=== PATIENT | male | born 1980 | race African-American/Black ===

== ENCOUNTER 2016-10-13 22:59 | Emergency (ER) | payer SELFPAY ==
[~2016-10-13] VITALS: Ht 172.7 cm; Wt 68.0 kg
--- NOTE | ~2016-10-13 | CT71 ---
[facility] A Service of [facility] RADIOLOGY TEXT RESULTS PATIENT: JOANNE MONTENEGRO LOCATION: SED : 82 UNIT #: [id number] AGE: [address]: William Palacios MD SEX: M ORDER DR: [id number] [place] [id number] E MR#: [id number] Acc #: [id number] NAME: JOANNE MONTENEGRO : 1980 SEX: M STUDY DATE/TIME: 10/13/2016 23:21 UNIT: SED ROOM: STUDY DESCRIPTION: CT Head Wo Contrast Attending Physician: William Palacios M.D. Ordering Physician: William Palacios M.D. Primary Care Physician: No Primary Care Physician MEDICAL IMAGING REPORT This report is preliminary unless electronic signature is present. EXAM CT head, noncontrast, 10/13/2016. HISTORY 36-year-old male in the ED complaining of 2-month history of dizziness, confusion and some burning discomfort behind the right ear. No reported acute injury. TECHNIQUE CT examination of the head without IV contrast. This CT exam was performed with one or more of the following radiation dose reduction techniques: automatic exposure control, adjustment of mA and/or kV according to patient size, and iterative reconstruction. FINDINGS The examination is negative. No evidence of intracranial hemorrhage, mass, mass effect, cerebral edema or hydrocephalus. No skull fracture or additional osseous abnormality. IMPRESSION Negative head CT examination. Dictated by... Segundo Tirado M.D. THIS IS AN ELECTRONICALLY VERIFIED REPORT Segundo Tirado M.D. at 10/14/2016 9:57 PM JACQUELINEW/jose guadalupe TD: 10/14/2016 10:00 JOB #: [id number] [facility] A Service of [facility] RADIOLOGY TEXT RESULTS PATIENT: JOANNE MONTENEGRO LOCATION: SED : 82 UNIT #: [id number] AGE: [address]: William Palacios MD SEX: M ORDER DR: MEDICAL IMAGING REPORT Page 1 of 1
[~2016-10-13 22:59] MED LIST: LEVAQUIN750 MG PO; MOTRIN600 M1 PO; NO MEDICATIONS
== END 2016-10-14 00:01 | disposition home or self-care (01) ==
LOC: SED 22:59
DX: R42 Dizziness and giddiness (principal); F41.9 Anxiety disorder, unspecified; F17.210 Nicotine dependence, cigarettes, uncomplicated
CPT/HCPCS: 70450; 99284